=== PATIENT | female | born 1990 | race Caucasian/White ===

== ENCOUNTER 2018-09-30 06:56 | Outpatient (CLI) | payer OTHER | END 2018-09-30 07:08 | disposition home or self-care (01) | LOC: LAB 06:56 | DX: M54.2 Cervicalgia (principal); Z00.00 Encounter for general adult medical examination without abnormal findings; E78.4 Other hyperlipidemia; R42 Dizziness and giddiness ==

== ENCOUNTER 2018-10-14 09:59 | Outpatient (CLI) | payer OTHER | END 2018-10-14 11:18 | disposition home or self-care (01) | LOC: LAB 09:59 | DX: E03.8 Other specified hypothyroidism (principal); Z00.00 Encounter for general adult medical examination without abnormal findings; I10 Essential (primary) hypertension; E78.00 Pure hypercholesterolemia, unspecified; Z01.818 Encounter for other preprocedural examination ==

== ENCOUNTER 2018-10-17 05:50 | Day surgery (SDC) | payer OTHER | END 2018-10-17 14:30 | disposition home or self-care (01) | LOC: CIR.AMB 05:50 | DX: R87.612 Low grade squamous intraepithelial lesion on cytologic smear of cervix (LGSIL) (principal); N72 Inflammatory disease of cervix uteri ==

== ENCOUNTER 2018-10-20 06:28 | Outpatient (CLI) | payer OTHER | END 2018-10-20 06:37 | disposition home or self-care (01) | LOC: LAB 06:28 | DX: Z11.3 Encounter for screening for infections with a predominantly sexual mode of transmission (principal) ==

== ENCOUNTER 2018-11-08 10:00 | Outpatient (CLI) | payer OTHER | END 2018-11-08 10:08 | disposition home or self-care (01) | LOC: LAB 10:00 | DX: J20.0 Acute bronchitis due to Mycoplasma pneumoniae (principal); J11.1 Influenza due to unidentified influenza virus with other respiratory manifestations ==

== ENCOUNTER → 2019-03-08 07:35 | Outpatient (CLI) | payer OTHER | END | disposition home or self-care (01) | LOC: LAB 07:35 | DX: Z11.3 Encounter for screening for infections with a predominantly sexual mode of transmission (principal); Z20.820 Contact with and (suspected) exposure to varicella ==